=== PATIENT | male | born 2000 | race Caucasian/White ===

== ENCOUNTER 2018-04-23 08:33 | Emergency (ER) | payer OTHER ==
[~2018-04-23] VITALS: Ht 165.1 cm; Wt 54.4 kg
== END 2018-04-23 10:00 | disposition home or self-care (01) ==
LOC: ED 08:33
DX: S93.491A Sprain of other ligament of right ankle, initial encounter (principal); X50.1XXA Overexertion from prolonged static or awkward postures, initial encounter; Y93.89 Activity, other specified; Y92.89 Other specified places as the place of occurrence of the external cause; Y99.8 Other external cause status